=== PATIENT | female | born 1945 | race Caucasian/White ===

== ENCOUNTER → 2017-12-10 | Day surgery (SDC) | payer MEDICARE, OTHER ==
[~2017-12-10] MED LIST: Lactated Ringers 1,000 ML IV SCH; Meperidine PF 50 MG/ML Syringe IV ONE; Meperidine PF 50 MG/ML Syringe ONE; Midazolam 1 MG/ML 2 ML SDV IV ONE; Midazolam 1 MG/ML 2 ML SDV ONE
[2017-12-10 10:54] VITALS: BP 134/52
--- NOTE | 2017-12-10 11:29 | OR ---
DATE OF OPERATION: 12/10/2017 PREOPERATIVE DIAGNOSIS: ALTERED BOWEL HABITS. POSTOPERATIVE DIAGNOSIS: ALTERED BOWEL HABITS. SURGEON: Kapil Ko MD PROCEDURE: FULL-LENGTH COLONOSCOPY WITH SNARE POLYPECTOMY X1. ANESTHESIA: Conscious sedation. COMPLICATIONS: None. SPECIMEN: Small tubular adenoma, ascending colon. FINDINGS: 1. Full-length colonoscopy. 2. Centeno diverticulosis [id number]. 3. Status post left sigmoidectomy. 4. Tubular adenoma, ascending colon, less than 0.5 cm. RECOMMENDATIONS: Routine followup colonoscopy in 5 years. INDICATIONS: The patient has a prior history of partial colectomy for diverticulitis. She has had a reanastomosis procedure and she has been having altered bowel habits over the last months and we elected to proceed with diagnostic colonoscopy. DESCRIPTION OF PROCEDURE: The patient was prepped and draped, placed in left lateral decubitus position. A lubricated Olympus colonoscope was inserted and advanced quite easily to the cecum around 20 to 25 cm as the patient's anastomosis site which looks fine and we easily advanced to the cecum and directly visualized the ileocecal valve, which was quite large. She has large cecal pouch. No lesions were found in those areas and on the proximal ascending colon, a small tubular adenoma along the haustral folds removed with a snare and suctioned into polyp trap #one without difficulty. The rest of the ascending transverse descending colons were completely benign, other than the patient does have centeno-diverticular disease without any inflammatory change. This is most significant in her proximal sigmoid colon/distal descending colon near the anastomotic site. I could find no other polyps, masses, ulceration, bleeding sites, vascular abnormalities or signs of colitis. The rectal vault was benign. Retroflexion showed no perianal lesions. Air was suctioned. Scope removed without complication. ALPHONSE/MARIAELENA /[id number]
== END ==
LOC: CC.SDS 08:42
PROVIDERS: ATTEND Family Medicine
DX: R19.4 Change in bowel habit (principal); D12.2 Benign neoplasm of ascending colon; K57.30 Diverticulosis of large intestine without perforation or abscess without bleeding; J30.9 Allergic rhinitis, unspecified; M79.7 Fibromyalgia; E78.00 Pure hypercholesterolemia, unspecified; M17.10 Unilateral primary osteoarthritis, unspecified knee; G62.9 Polyneuropathy, unspecified; K43.9 Ventral hernia without obstruction or gangrene; Z88.5 Allergy status to narcotic agent; Z79.899 Other long term (current) drug therapy; Z90.49 Acquired absence of other specified parts of digestive tract; Z87.891 Personal history of nicotine dependence
CPT/HCPCS: 88305; J2175; J2250; J7120